=== PATIENT | male | born 1960 | race Caucasian/White ===

== ENCOUNTER 2019-02-27 13:38 | Outpatient (CLI) | payer MEDICARE ==
--- NOTE | 2019-02-27 15:19 | MRI ---
CERVICAL SPINE MRI NONCONTRAST: COMPARISON: 07/15/2015. INDICATION: Neck pain. FINDINGS: There is generalized marrow heterogeneity, likely on a degenerative basis. No significant stenosis o f the C1-2 level of the central canal. C2-3: Broad-based disk-osteophyte, uncinate process hypertrophy, and right greater than left facet o steoarthritis result in mild to moderate bilateral neural foraminal stenosis and slight effacement of the ventral thecal sac. C3-4: Broad-based disk-osteophyte, left asymmetric, results in moderate central canal stenosis with ventral cord flattening. There is bilateral uncinate process hypertrophy greater on the left as well as bilateral facet osteoarthritis producing moderate to severe left and moderate right neural forami nal stenosis. C4-5: Right paracentral protrusion is again demonstrated, grossly stable in volume, with persistent mass effect upon the right hemicord and moderate central canal stenosis. There is bilateral uncinate process and facet hypertrophy with moderate bilateral neural foraminal stenosis. C5-6: Left asymmetric broad-based disk-osteophyte is present with moderate central canal stenosis, g reater to the left of midline and associated ventral cord flattening more so on the left. There is m oderate bilateral neural foraminal stenosis. C6-7: Moderate central canal stenosis as a result of broad-based disk-osteophyte. There is bilatera l uncinate process hypertrophy with moderate biforaminal stenosis. C7-T1: No high-grade central canal or foraminal stenosis. IMPRESSION: 1. 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 2. 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 3. Additional multilevel degenerative changes are discussed above. POS: [facility]
== END 2019-02-27 13:39 | disposition home or self-care (01) ==
LOC: BICMRI 13:38
DX: M54.2 Cervicalgia (principal); M50.221 Other cervical disc displacement at C4-C5 level; M25.78 Osteophyte, vertebrae; M47.812 Spondylosis without myelopathy or radiculopathy, cervical region
CPT/HCPCS: 72141

== ENCOUNTER 2021-07-17 09:15 | Emergency (ER) | payer MEDICARE ==
[2021-07-17] MEDS ORDERED: Fentanyl 100 MCG/2 ML VIAL ONE (10:53)
== END 2021-07-17 12:17 | disposition home or self-care (01) ==
LOC: ERS 09:15
DX: S30.0XXA Contusion of lower back and pelvis, initial encounter (principal); E11.9 Type 2 diabetes mellitus without complications; E78.5 Hyperlipidemia, unspecified; I10 Essential (primary) hypertension; W19.XXXA Unspecified fall, initial encounter
CPT/HCPCS: 72131; 96372; J3010